=== PATIENT | male | born 1960 | race Caucasian/White ===

== ENCOUNTER 2020-01-31 09:13 | Emergency (ER) | payer OTHER ==
[2020-01-31 09:19] VITALS: BP 142/84; PULSE 104; TEMP 97.2; BMI 40.4
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
== END 2020-01-31 10:01 | disposition home or self-care (01) ==
LOC: JERFT 09:13
DX: M54.5 Low back pain (principal); M25.561 Pain in right knee; V89.2XXA Person injured in unspecified motor-vehicle accident, traffic, initial encounter
CPT/HCPCS: 99283-25